=== PATIENT | male | born 1965 | race Caucasian/White ===

== ENCOUNTER 2017-10-10 11:25 | Day surgery (SDC) | payer BC ==
[~2017-10-10 11:25] MED LIST: Lactated Ringers 1,000 ML IV SCH; Lidocaine 2% 5 ML SDV ONE; Propofol 200 MG/20 ML SDV ONE; Sodium Chloride 0.9% 10 ML Syringe FLUSH PRN; Sodium Chloride 0.9% 2.5 ML Syringe FLUSH PRN; fentaNYL 100 MCG/2 ML SDV ONE
--- NOTE | 2017-10-10 12:01 | PCM.PREANE ---
Preanesthetic Assessment - Anesthesia/Transfusion/Family Hx Anesthesia History: Prior Anesthesia Without Reaction Family History of Anesthesia Reaction: No Transfusion History: No Prior Transfusion(s) Intubation History: Unknown - Review of Systems General: No Symptoms Pulmonary: No Symptoms Cardiovascular: No Symptoms Gastrointestinal: Diarrhea Neurological: No Symptoms Other: Reports: None - Physical Assessment NPO Status Date: 10/10/17 NPO Status Time: 08:00 O2 Sat by Pulse Oximetry: 95 Respiratory Rate: 16 Vital Signs: Last Vital Signs Temp 36.5 C 10/10/17 11:38 Pulse 54 L 10/10/17 11:38 Resp 16 10/10/17 11:38 BP 139/80 10/10/17 11:38 Pulse Ox 95 10/10/17 11:38 Height: 1.85 m Weight: 115.666 kg ASA Class: 2 Mental Status: Alert & Oriented x3 Airway Class: Mallampati = 2 Dentition: Reports: Bridge (fixed bridbe upper front) Thyro-Mental Finger Breadths: 3 Mouth Opening Finger Breadths: 2 ROM/Head Extension: Full Lungs: Clear to Auscultation, Normal Respiratory Effort Cardiovascular: Regular Rate, Regular Rhythm - Allergies Allergies/Adverse Reactions: Allergies Allergy/AdvReac Type Severity Reaction Status Date / Time No Known Allergies Allergy Verified 10/08/17 12:04 - Blood Blood Available: No - Anesthesia Plan Pre-Op Medication Ordered: None - Acknowledgements Anesthesia Type Planned: MAC Pt an Appropriate Candidate for the Planned Anesthesia: Yes Alternatives and Risks of Anesthesia Discussed w Pt/Guardian: Yes Pt/Guardian Understands and Agrees with Anesthesia Plan: Yes PreAnesthesia Questionnaire Other HEENT History: wears glasses Respiratory History: Reports: Sleep Apnea Other Respiratory History: uses CPAP Gastrointestinal History: Reports: Chronic Diarrhea Musculoskeletal History: Reports: Fracture Other Musculoskeletal History: hx of fx fingers and toes, left shoulder recurrent dislocations Endocrine/Metabolic History: Reports: Diabetes, Type II, Obesity/BMI 30+ - Past Surgical History Head Surgeries/Procedures: Reports: None HEENT Surgical History: Reports: Oral Surgery Other HEENT Surgeries/Procedures: has upper front dental implants Musculoskeletal Surgical History: Reports: Shoulder Surgery Other Musculoskeletal Surgeries/Procedures:: hx of right RTCR and TX of Acromioclavicular Dislocation - SUBSTANCE USE Smoking Status *Q: Never Smoker Recreational Drug Use History: No - HOME MEDS Home Medications: Home Meds Ascorbate Calcium [Vitamin C] 500 mg PO ASDIRECTED PRN 10/08/17 [History] Zolpidem Tartrate 10 mg PO BEDTIME PRN 10/08/17 [History] metFORMIN HCl [Metformin HCl ER] 1,000 mg PO QPM 10/08/17 [History] - CURRENT (IN HOUSE) MEDS Current Meds: Current Medications Lactated Ringer's (Ringers, Lactated) 1,000 mls @ 125 mls/hr IV ASDIRECTED BARBIE Last Admin: 10/10/17 11:42 Dose: 125 mls/hr Sodium Chloride (Saline Flush) 10 ml FLUSH ASDIRECTED PRN PRN Reason: Keep Vein Open Sodium Chloride (Saline Flush) 2.5 ml FLUSH ASDIRECTED PRN PRN Reason: Keep Vein Open Discontinued Medications Fentanyl (Sublimaze) Confirm Administered Dose 100 mcg .ROUTE .STK-MED ONE Stop: 10/10/17 10:00 Lidocaine (Xylocaine-Mpf 2%) Confirm Administered Dose 5 ml .ROUTE .STK-MED ONE Stop: 10/10/17 10:00 Propofol (Diprivan 20 Ml) Confirm Administered Dose 400 mg .ROUTE .STK-MED ONE Stop: 10/10/17 10:00
[2017-10-10] MEDS ORDERED: Midazolam 1 MG/ML 2 ML SDV ONE (12:19)
[2017-10-10] MEDS ORDERED: Propofol 200 MG/20 ML SDV ONE (12:21)
--- NOTE | 2017-10-10 13:00 | PCM.OPNOTE ---
- General Post-Op/Procedure Note Date of Surgery/Procedure: 10/10/17 Operative Procedure(s): Diagnostic EGD and colonoscopy Findings: Hyperplastic polyps in body of stomach, otherwise normal EGD. Diverticulosis in sigmoid colon. Pre Op Diagnosis: Change in bowel habits, GERD Post-Op Diagnosis: Hyperplastic polyps in stomach, diverticulosis Anesthesia Technique: [facility] [place] Primary Surgeon: Angely Donovan Condition: Good
--- NOTE | 2017-10-10 13:20 | PCM.POSTAN ---
POST ANESTHESIA ASSESSMENT - MENTAL STATUS Mental Status: Alert - RESPIRATORY Respiratory Status: Respiratory Rate WNL, Airway Patent, O2 Saturation Stable - CARDIOVASCULAR CV Status: Pulse Rate WNL, Blood Pressure Stable - GASTROINTESTINAL GI Status: No Symptoms - PAIN Pain Score: 0 - POST OP HYDRATION Hydration Status: Adequate & Stable - OBSERVATIONS Free Text/Narrative:: no anesthesia problems
--- NOTE | 2017-10-10 20:29 | OR ---
SURGEON: EJ DE LEON MD DATE OF PROCEDURE: 10/10/2017 PREOPERATIVE DIAGNOSES: Left upper quadrant pain, gastroesophageal reflux disease, change in bowel habits. POSTOPERATIVE DIAGNOSES: 1. Hyperplastic polyps of the stomach. 2. Diverticulosis. PROCEDURE PERFORMED: Diagnostic EGD and colonoscopy. ANESTHESIA: MAC. INSTRUMENT USED: Olympus colonoscope, Olympus endoscope. EXTENT OF EXAM: To the second portion of duodenum, to the cecum. PREPARATION: Good. LIMITATIONS: None. INDICATION FOR EXAMINATION: The patient is a 52-year-old male, who presents with left upper quadrant pain as well as a history of reflux and a change in his bowel habits. The patient has been having diarrhea. The decision was made to perform a diagnostic EGD and colonoscopy. The patient and I discussed the procedure, expected perioperative course, and risks including bleeding, infection, and perforation. The patient verbalized understanding and wishes to proceed. PROCEDURE IN DETAIL: The patient was brought into the endoscopy suite and placed in a beach chair position. A time-out was completed verifying the patient's name, age, date of , allergies, and procedure to be performed. A bite block was placed in the patient's mouth and monitored anesthesia care was induced. Continuous oxygen was provided via nasal cannula throughout the procedure. After adequate sedation was achieved, a well lubricated endoscope was placed in the patient's mouth and advanced under direct visualization to the level of the second portion of the duodenum. This appeared normal and a photograph was taken. The scope was then slowly withdrawn examining the color, texture, anatomy, and integrity of the upper GI mucosa. The duodenal bulb appeared normal. The scope was brought into the stomach and a photograph was taken of the pylorus and GE junction, which appeared normal. Biopsies were taken of the gastric body, antrum, and fundus. The patient was found to have several hyperplastic polyps all under 0.5 cm in size along the body of his stomach. The largest of these was biopsied and sent to pathology. The scope was then brought into the distal esophagus. This appeared normal and a photograph was taken. The remainder of the esophageal mucosa appeared normal. The scope was then removed from the patient and this procedure was terminated. The patient was turned onto his left side and a digital rectal exam performed. This exam was within normal limits. A well lubricated colonoscope was inserted in the rectum and advanced under direct visualization to the level of cecum. The cecum was identified by both visual and anatomic landmarks. A photograph was taken of the cecal cap as well as the scope retroflexed within the cecum. The scope was then straightened out and removed and fully withdrawn while examining the color, texture, anatomy, and integrity of the mucosa from the cecum to the anal canal. The patient was found to have diverticulosis within the sigmoid colon. The scope was then brought into the rectum and retroflexed to allow visualization of the anal canal opening. This appeared normal and a photograph was taken. The scope was then straightened out and removed from the patient. The cecum to anus time was 7 minutes. The patient tolerated the procedure well and was transferred to the PACU in stable condition. ENDOSCOPIC DIAGNOSES: 1. Hyperplastic polyps of the stomach body. 2. Diverticulosis. RECOMMENDATIONS: Follow up in clinic in 2 weeks. We will have the patient start pantoprazole to see if this helps with his intermittent left upper quadrant pain. He can continue to take Metamucil as he is finding this is slowing down the frequency of his bowel movements improving the consistency of his BMs. The patient can take Imodium as needed for greater than 4 bowel movements per day. ELY PERKINS /[id number] RICHARD
== END 2017-10-10 13:25 | disposition home or self-care (01) ==
LOC: MW.SDS 11:25
PROVIDERS: ATTEND Surgery
DX: K29.50 Unspecified chronic gastritis without bleeding (principal); K31.7 Polyp of stomach and duodenum; K57.30 Diverticulosis of large intestine without perforation or abscess without bleeding; G47.33 Obstructive sleep apnea (adult) (pediatric); K52.9 Noninfective gastroenteritis and colitis, unspecified; F51.04 Psychophysiologic insomnia; E11.9 Type 2 diabetes mellitus without complications; M47.26 Other spondylosis with radiculopathy, lumbar region; M51.36 Other intervertebral disc degeneration, lumbar region; E66.9 Obesity, unspecified; Z68.33 Body mass index [BMI] 33.0-33.9, adult; Z79.899 Other long term (current) drug therapy; Z79.84 Long term (current) use of oral hypoglycemic drugs; Z99.89 Dependence on other enabling machines and devices; Z98.890 Other specified postprocedural states
CPT/HCPCS: 43239; 45378; J2250; J3010; J7120; 88305; 88312; J2704

== ENCOUNTER 2020-05-11 10:05 | Day surgery (SDC) | payer OTHER ==
[2020-05-11] MEDS ORDERED: Ondansetron 4 MG/2 ML SDV ONE ×2 (10:16→13:27)
[2020-05-11] MEDS ORDERED: fentaNYL 50 MCG/ML SDV ONE (10:19)
[2020-05-11] MEDS ORDERED: Sodium Chloride 0.9% 1,000 ML IV STA (10:20)
[2020-05-11] MEDS ORDERED: fentaNYL 50 MCG/ML SDV IVPUSH ONE ×2 (10:20→10:37)
[2020-05-11] MEDS ORDERED: Ondansetron 4 MG/2 ML SDV IVPUSH ONE (10:20)
[2020-05-11 10:48] LABS: BLOOD UREA NITROGEN,BUN 17 mg/dL (7.0-18.0); CARBON DIOXIDE,CO2 24.2 mmol/L (21.0-32.0); CHLORIDE,CL 104 mmol/L (98-107); GLUCOSE RANDOM 138 mg/dL (74-106); POTASSIUM,K 3.9 mmol/L (3.5-5.1); SODIUM,NA 140 mmol/L (136-148)
[2020-05-11] MEDS ORDERED: Ketorolac 30 MG/ML SDV IVPUSH ONE (11:28)
--- NOTE | 2020-05-11 11:38 | CT ---
CT abdomen and pelvis Technique: Multiple axial sections were obtained from above the dome of the diaphragm inferiorly through the pubic symphysis. Intravenous and oral contrast not utilized. Study has been performed as a ureteral stone protocol. Findings: Left ureter is dilated down to the bladder. This finding is caused by an obstructing stone located within the distal UVJ measuring 6.8 mm. No other ureteral calculi are seen. Right kidney shows a nonobstructing stone measuring approximately 6 mm. Visualized lung bases show nothing acute. Noncontrast appearance of the liver shows no focal abnormality. Gallbladder contains no calcified gallstones spleen size is normal. Fatty adrenal abnormality is identified on the left side. This adrenal nodule measures 2.7 cm in size and most likely represents a benign adenoma. Right adrenal gland is unremarkable. Pancreas appears within normal limits. Aorta shows no aneurysm. No retroperitoneal adenopathy or mesenteric abnormalities are seen. Appendix is seen which appears normal. No pelvic mass or adenopathy is seen. Diverticuli are seen within the colon most prominent in the sigmoid region with no findings of diverticulitis. No free fluid or inflammatory change is seen. Bone window settings were reviewed which appear within normal limits for the patient's age. Impression: 1. Dilated left ureter caused by a 6.8 mm obstructing stone located within the distal UVJ. 2. Nonobstructing calculus within the right kidney. 3. Other nonacute findings as noted above. Diagnostic code #3 This report was dictated in MDT
--- NOTE | 2020-05-11 12:53 | EDM.PDOC ---
ED HPI GENERAL MEDICAL PROBLEM - General Chief Complaint: Abdominal Pain Stated Complaint: ABDOMINAL PAIN Time Seen by Provider: 05/11/20 10:21 Source of Information: Reports: Patient History Limitations: Reports: No Limitations - History of Present Illness INITIAL COMMENTS - FREE TEXT/NARRATIVE: Reports 4-hour history of left lower quadrant pain and left flank pain. He did have a hard dark brown BM this morning. No history of diverticulosis and he has had a colonoscopy. He had a CT scan of the abdomen pelvis about a month or so ago but it was negative with only an incidental finding of a kidney cyst. He has never had this pain before. No personal or family history of kidney stones. No urinary urgency burning or frequency, no fever. The pain has been excruciating and is accompanied by nausea. LLQ, L Flank Pain Score (Numeric/FACES): 8 - Related Data Allergies Allergy/AdvReac Type Severity Reaction Status Date / Time No Known Allergies Allergy Verified 05/11/20 10:13 Home Meds: Home Meds Hydrocodone/Acetaminophen [Hydrocodone-Acetamin 10-325 mg] 1 tab PO Q6HR PRN #10 tablet 05/11/20 [Rx] Past Medical History Other HEENT History: wears glasses Respiratory History: Reports: Sleep Apnea Other Respiratory History: uses CPAP Gastrointestinal History: Reports: Chronic Diarrhea Musculoskeletal History: Reports: Fracture Other Musculoskeletal History: hx of fx fingers and toes, left shoulder recurrent dislocations Endocrine/Metabolic History: Reports: Diabetes, Type II, Obesity/BMI 30+ Other Endocrine/Metabolic History: pre-diabetic - Past Surgical History Head Surgeries/Procedures: Reports: None HEENT Surgical History: Reports: Oral Surgery Other HEENT Surgeries/Procedures: has upper front dental implants Musculoskeletal Surgical History: Reports: Shoulder Surgery Other Musculoskeletal Surgeries/Procedures:: hx of right RTCR and TX of Acromioclavicular Dislocation Social & Family History - Family History Family Medical History: Noncontributory - Tobacco Use Smoking Status *Q: Never Smoker - Recreational Drug Use Recreational Drug Use: No ED ROS GENERAL - Review of Systems Review Of Systems: Comprehensive ROS is negative, except as noted in HPI. ED EXAM, GI/ABD - Physical Exam Exam: See Below Exam Limited By: No Limitations General Appearance: Alert, Moderate Distress (due to pain) Ears: Normal External Exam Nose: Normal Inspection Throat/Mouth: Normal Inspection Head: Atraumatic, Normocephalic Neck: Normal Inspection Respiratory/Chest: No Respiratory Distress, Lungs Clear, Normal Breath Sounds Cardiovascular: Normal Peripheral Pulses, Regular Rate, Rhythm, No Murmur GI/Abdominal Exam: Soft, Non-Tender, No Distention Extremities: Normal Inspection Neurological: Alert, Oriented Psychiatric: Anxious Skin Exam: Warm, Dry, Intact, Normal Color, No Rash Lymphatic: No Adenopathy Course - Vital Signs Last Recorded V/S: Last Vital Signs Temp 35.8 C L 05/11/20 10:37 Pulse 60 05/11/20 10:37 Resp 18 05/11/20 10:37 BP 135/86 05/11/20 10:37 Pulse Ox 100 05/11/20 10:37 - Orders/Labs/Meds Orders: Active Orders 24 hr Category Date Time Status Patient Status [ADT] Routine ADT 05/11/20 12:39 Ordered EKG 12 Lead [EKG Documentation Completion] [RC] STAT Care 05/11/20 11:09 Ordered UA W/MICROSCOPIC [URIN] Stat Lab 05/11/20 10:31 Ordered Labs: Laboratory Tests 05/11/20 05/11/20 05/11/20 Range/Units 10:15 10:15 10:15 WBC 9.00 (4.0-11.0) K/uL RBC 5.24 (4.50-5.90) M/uL Hgb 15.8 (13.0-17.0) g/dL Hct 47.4 (38.0-50.0) % MCV 90.5 (80.0-98.0) fL MCH 30.2 (27.0-32.0) pg MCHC 33.3 (31.0-37.0) g/dL RDW Std Deviation 42.8 (28.0-62.0) fl RDW Coeff of Anshu 13 (11.0-15.0) % Plt Count 260 (150-400) K/uL MPV 10.00 (7.40-12.00) fL Neut % (Auto) 64.1 (48.0-80.0) % Lymph % (Auto) 24.3 (16.0-40.0) % [place] % (Auto) 8.1 (0.0-15.0) % Eos % (Auto) 3.3 (0.0-7.0) % Baso % (Auto) 0.2 (0.0-1.5) % Neut # (Auto) 5.8 H (1.4-5.7) K/uL Lymph # (Auto) 2.2 (0.6-2.4) K/uL [place] # (Auto) 0.7 (0.0-0.8) K/uL Eos # (Auto) 0.3 (0.0-0.7) K/uL Baso # (Auto) 0.0 (0.0-0.1) K/uL Nucleated RBC % 0.0 /100WBC Nucleated RBCs # 0 K/uL Sodium 140 (136-148) mmol/L Potassium 3.9 (3.5-5.1) mmol/L Chloride 104 (98-107) mmol/L Carbon Dioxide 24.2 (21.0-32.0) mmol/L BUN 17 (7.0-18.0) mg/dL Creatinine 1.2 (0.8-1.3) mg/dL Est Cr Clr Drug Dosing 79.53 mL/min Estimated GFR (MDRD) > 60.0 ml/min Glucose 138 H (74-106) mg/dL Calcium 8.9 (8.5-10.1) mg/dL Total Bilirubin 0.6 (0.2-1.0) mg/dL AST 19 (15-37) IU/L ALT 26 (14-63) IU/L Alkaline Phosphatase 64 (46-116) U/L Troponin I <0.050 (0.000-0.056) ng/mL Total Protein 7.6 (6.4-8.2) g/dL Albumin 4.1 (3.4-5.0) g/dL Globulin 3.5 (2.6-4.0) g/dL Albumin/Globulin Ratio 1.2 (0.9-1.6) SARS-CoV-2 RNA (RT-PCR) (NEGATIVE) 05/11/20 Range/Units 12:22 WBC (4.0-11.0) K/uL RBC (4.50-5.90) M/uL Hgb (13.0-17.0) g/dL Hct (38.0-50.0) % MCV (80.0-98.0) fL MCH (27.0-32.0) pg MCHC (31.0-37.0) g/dL RDW Std Deviation (28.0-62.0) fl RDW Coeff of Anshu (11.0-15.0) % Plt Count (150-400) K/uL MPV (7.40-12.00) fL Neut % (Auto) (48.0-80.0) % Lymph % (Auto) (16.0-40.0) % [place] % (Auto) (0.0-15.0) % Eos % (Auto) (0.0-7.0) % Baso % (Auto) (0.0-1.5) % Neut # (Auto) (1.4-5.7) K/uL Lymph # (Auto) (0.6-2.4) K/uL [place] # (Auto) (0.0-0.8) K/uL Eos # (Auto) (0.0-0.7) K/uL Baso # (Auto) (0.0-0.1) K/uL Nucleated RBC % /100WBC Nucleated RBCs # K/uL Sodium (136-148) mmol/L Potassium (3.5-5.1) mmol/L Chloride (98-107) mmol/L Carbon Dioxide (21.0-32.0) mmol/L BUN (7.0-18.0) mg/dL Creatinine (0.8-1.3) mg/dL Est Cr Clr Drug Dosing mL/min Estimated GFR (MDRD) ml/min Glucose (74-106) mg/dL Calcium (8.5-10.1) mg/dL Total Bilirubin (0.2-1.0) mg/dL AST (15-37) IU/L ALT (14-63) IU/L Alkaline Phosphatase (46-116) U/L Troponin I (0.000-0.056) ng/mL Total Protein (6.4-8.2) g/dL Albumin (3.4-5.0) g/dL Globulin (2.6-4.0) g/dL Albumin/Globulin Ratio (0.9-1.6) SARS-CoV-2 RNA (RT-PCR) NEGATIVE (NEGATIVE) Meds: Medications Discontinued Medications Generic Name Dose Route Start Last Admin Trade Name Freq PRN Reason Stop Dose Admin Fentanyl 50 mcg 05/11/20 10:20 05/11/20 10:21 Fentanyl IVPUSH 05/11/20 10:21 50 mcg ONETIME ONE Administration Fentanyl Confirm 05/11/20 10:19 05/11/20 10:22 Fentanyl Administered 05/11/20 10:20 Not Given Dose 50 mcg .ROUTE .STK-MED ONE Fentanyl 50 mcg 05/11/20 10:37 05/11/20 10:47 Fentanyl IVPUSH 05/11/20 10:38 50 mcg ONETIME ONE Administration Sodium Chloride 1,000 mls @ 999 mls/hr 05/11/20 10:20 05/11/20 10:21 Normal Saline IV 05/11/20 11:20 999 mls/hr STAT STA Administration Ketorolac Tromethamine 30 mg 05/11/20 11:28 05/11/20 11:42 Toradol IVPUSH 05/11/20 11:29 30 mg ONETIME ONE Administration Ondansetron HCl Confirm 05/11/20 10:16 05/11/20 10:21 Zofran Administered 05/11/20 10:17 Not Given Dose 4 mg .ROUTE .STK-MED ONE Ondansetron HCl 4 mg 05/11/20 10:20 05/11/20 10:21 Zofran IVPUSH 05/11/20 10:21 4 mg ONETIME ONE Administration - Re-Assessments/Exams Free Text/Narrative Re-Assessment/Exam: 05/11/20 13:00 Pain improved with Toradol, now resting with 1/10 pain. Free Text/Narrative Re-Assessment/Exam: 05/11/20 13:01 Dr. Erick MD urology consulted. Discussion regarding clinical course, history, imaging and lab findings. He will see patient and get him admitted to same-day surgery. COVID test ordered. NPO status 1/2 cup coffee at 7am. Departure - Departure Time of Disposition: 13:02 Disposition: Refer to Observation Condition: Good Clinical Impression: Ureteral stone with hydronephrosis - Discharge Information Prescriptions: Hydrocodone/Acetaminophen [Hydrocodone-Acetamin 10-325 mg] 1 tab PO Q6HR PRN #10 tablet PRN Reason: Pain Referrals: Uli Moncada MD [Primary Care Provider] - Sepsis Event Note (ED) - Evaluation Sepsis Screening Result: No Definite Risk - Focused Exam Vital Signs: Vital Signs Temp Pulse Resp BP Pulse Ox 05/11/20 10:37 35.8 C L 60 18 135/86 100 05/11/20 10:10 35.6 C L 54 L 20 128/60 100 - My Orders Last 24 Hours: My Active Orders 05/11/20 10:31 UA W/MICROSCOPIC [URIN] Stat 05/11/20 11:09 EKG 12 Lead [EKG Documentation Completion] [RC] STAT 05/11/20 12:39 Patient Status [ADT] Routine - Assessment/Plan Last 24 Hours: My Active Orders 05/11/20 10:31 UA W/MICROSCOPIC [URIN] Stat 05/11/20 11:09 EKG 12 Lead [EKG Documentation Completion] [RC] STAT 05/11/20 12:39 Patient Status [ADT] Routine
[2020-05-11] MEDS ORDERED: Midazolam 1 MG/ML 2 ML SDV ONE (13:26)
[2020-05-11] MEDS ORDERED: Propofol 200 MG/20 ML SDV ONE (13:26)
[2020-05-11] MEDS ORDERED: fentaNYL 250 MCG/5 ML SDV ONE (13:26)
[2020-05-11] MEDS ORDERED: Dexamethasone 4 MG/ML 5 ML MDV ONE (13:27)
--- NOTE | 2020-05-11 13:52 | PCM.PREANE ---
Preanesthetic Assessment - Anesthesia/Transfusion/Family Hx Anesthesia History: Prior Anesthesia Without Reaction (shoulder, oral) Family History of Anesthesia Reaction: No Transfusion History: No Prior Transfusion(s) Intubation History: Unknown - Review of Systems General: No Symptoms Pulmonary: No Symptoms Cardiovascular: No Symptoms Gastrointestinal: Abdominal Pain Neurological: No Symptoms Other: Reports: None - Physical Assessment NPO Status Date: 05/11/20 NPO Status Time: 07:30 (CL only) Vital Signs: Last Vital Signs Temp 96.5 F L 05/11/20 10:37 Pulse 65 05/11/20 13:03 Resp 17 05/11/20 13:03 BP 104/57 L 05/11/20 13:03 Pulse Ox 98 05/11/20 13:03 Height: 6 ft 1 in Weight: 113.398 kg ASA Class: 2 Mental Status: Alert & Oriented x3 Airway Class: Mallampati = 2 Dentition: Reports: Implants (central maxillary) ROM/Head Extension: Full Lungs: Clear to Auscultation, Normal Respiratory Effort Cardiovascular: Regular Rate, Regular Rhythm - Lab Values: Laboratory Last Values WBC 9.00 K/uL (4.0-11.0) 05/11/20 10:15 RBC 5.24 M/uL (4.50-5.90) 05/11/20 10:15 Hgb 15.8 g/dL (13.0-17.0) 05/11/20 10:15 Hct 47.4 % (38.0-50.0) 05/11/20 10:15 MCV 90.5 fL (80.0-98.0) 05/11/20 10:15 MCH 30.2 pg (27.0-32.0) 05/11/20 10:15 MCHC 33.3 g/dL (31.0-37.0) 05/11/20 10:15 RDW Std Deviation 42.8 fl (28.0-62.0) 05/11/20 10:15 RDW Coeff of Anshu 13 % (11.0-15.0) 05/11/20 10:15 Plt Count 260 K/uL (150-400) 05/11/20 10:15 MPV 10.00 fL (7.40-12.00) 05/11/20 10:15 Neut % (Auto) 64.1 % (48.0-80.0) 05/11/20 10:15 Lymph % (Auto) 24.3 % (16.0-40.0) 05/11/20 10:15 Andrew % (Auto) 8.1 % (0.0-15.0) 05/11/20 10:15 Eos % (Auto) 3.3 % (0.0-7.0) 05/11/20 10:15 Baso % (Auto) 0.2 % (0.0-1.5) 05/11/20 10:15 Neut # (Auto) 5.8 K/uL (1.4-5.7) H 05/11/20 10:15 Lymph # (Auto) 2.2 K/uL (0.6-2.4) 05/11/20 10:15 Andrew # (Auto) 0.7 K/uL (0.0-0.8) 05/11/20 10:15 Eos # (Auto) 0.3 K/uL (0.0-0.7) 05/11/20 10:15 Baso # (Auto) 0.0 K/uL (0.0-0.1) 05/11/20 10:15 Nucleated RBC % 0.0 /100WBC 05/11/20 10:15 Nucleated RBCs # 0 K/uL 05/11/20 10:15 Sodium 140 mmol/L (136-148) 05/11/20 10:15 Potassium 3.9 mmol/L (3.5-5.1) 05/11/20 10:15 Chloride 104 mmol/L (98-107) 05/11/20 10:15 Carbon Dioxide 24.2 mmol/L (21.0-32.0) 05/11/20 10:15 BUN 17 mg/dL (7.0-18.0) 05/11/20 10:15 Creatinine 1.2 mg/dL (0.8-1.3) 05/11/20 10:15 Est Cr Clr Drug Dosing 79.53 mL/min 05/11/20 10:15 Estimated GFR (MDRD) > 60.0 ml/min 05/11/20 10:15 Glucose 138 mg/dL (74-106) H 05/11/20 10:15 Calcium 8.9 mg/dL (8.5-10.1) 05/11/20 10:15 Total Bilirubin 0.6 mg/dL (0.2-1.0) 05/11/20 10:15 AST 19 IU/L (15-37) 05/11/20 10:15 ALT 26 IU/L (14-63) 05/11/20 10:15 Alkaline Phosphatase 64 U/L (46-116) 05/11/20 10:15 Troponin I <0.050 ng/mL (0.000-0.056) 05/11/20 10:15 Total Protein 7.6 g/dL (6.4-8.2) 05/11/20 10:15 Albumin 4.1 g/dL (3.4-5.0) 05/11/20 10:15 Globulin 3.5 g/dL (2.6-4.0) 05/11/20 10:15 Albumin/Globulin Ratio 1.2 (0.9-1.6) 05/11/20 10:15 SARS-CoV-2 RNA (RT-PCR) NEGATIVE (NEGATIVE) 05/11/20 12:22 - Allergies Allergies/Adverse Reactions: Allergies Allergy/AdvReac Type Severity Reaction Status Date / Time No Known Allergies Allergy Verified 05/11/20 10:13 - Blood Blood Available: No - Anesthesia Plan Pre-Op Medication Ordered: Other (zofran, fentanyl and toradol in ED today) - Acknowledgements Anesthesia Type Planned: General Anesthesia Pt an Appropriate Candidate for the Planned Anesthesia: Yes Alternatives and Risks of Anesthesia Discussed w Pt/Guardian: Yes Pt/Guardian Understands and Agrees with Anesthesia Plan: Yes Additional Comments: PMH: JOSHUA-used CPAP, pre-DM- on no meds, chronic diarrhea- recent neg colonoscopy, NKDA, 6.8 mm stone at UV junction, hb=15, vwa=880, cr=1.2, eGFR>60 PLAN: ga/LMA PreAnesthesia Questionnaire Other HEENT History: wears glasses Respiratory History: Reports: Sleep Apnea Other Respiratory History: uses CPAP Gastrointestinal History: Reports: Chronic Diarrhea Musculoskeletal History: Reports: Fracture Other Musculoskeletal History: hx of fx fingers and toes, left shoulder recurrent dislocations Endocrine/Metabolic History: Reports: Diabetes, Type II, Obesity/BMI 30+ Other Endocrine/Metabolic History: pre-diabetic - Past Surgical History Head Surgeries/Procedures: Reports: None HEENT Surgical History: Reports: Oral Surgery Other HEENT Surgeries/Procedures: has upper front dental implants Musculoskeletal Surgical History: Reports: Shoulder Surgery Other Musculoskeletal Surgeries/Procedures:: hx of right RTCR and TX of Acromioclavicular Dislocation - SUBSTANCE USE Smoking Status *Q: Never Smoker Recreational Drug Use History: No - HOME MEDS Home Medications: Home Meds Hydrocodone/Acetaminophen [Hydrocodone-Acetamin 10-325 mg] 1 tab PO Q6HR PRN #10 tablet 05/11/20 [Rx] - CURRENT (IN HOUSE) MEDS Current Meds: Current Medications Discontinued Medications Dexamethasone (Dexamethasone) Confirm Administered Dose 20 mg .ROUTE .STK-MED ONE Stop: 05/11/20 13:28 Fentanyl (Fentanyl) 50 mcg IVPUSH ONETIME ONE Stop: 05/11/20 10:21 Last Admin: 05/11/20 10:21 Dose: 50 mcg Documented by: Fentanyl (Fentanyl) Confirm Administered Dose 50 mcg .ROUTE .STK-MED ONE Stop: 05/11/20 10:20 Last Admin: 05/11/20 10:22 Dose: Not Given Documented by: Fentanyl (Fentanyl) 50 mcg IVPUSH ONETIME ONE Stop: 05/11/20 10:38 Last Admin: 05/11/20 10:47 Dose: 50 mcg Documented by: Fentanyl (Sublimaze) Confirm Administered Dose 250 mcg .ROUTE .STK-MED ONE Stop: 05/11/20 13:27 Sodium Chloride (Normal Saline) 1,000 mls @ 999 mls/hr IV STAT STA Stop: 05/11/20 11:20 Last Admin: 05/11/20 10:21 Dose: 999 mls/hr Documented by: Ketorolac Tromethamine (Toradol) 30 mg IVPUSH ONETIME ONE Stop: 05/11/20 11:29 Last Admin: 05/11/20 11:42 Dose: 30 mg Documented by: Lidocaine HCl (Xylocaine-Mpf 1%) Confirm Administered Dose 5 ml .ROUTE .STK-MED ONE Stop: 05/11/20 13:28 Midazolam HCl (Versed 1 Mg/Ml) Confirm Administered Dose 2 mg .ROUTE .STK-MED ONE Stop: 05/11/20 13:27 Ondansetron HCl (Zofran) Confirm Administered Dose 4 mg .ROUTE .STK-MED ONE Stop: 05/11/20 10:17 Last Admin: 05/11/20 10:21 Dose: Not Given Documented by: Ondansetron HCl (Zofran) 4 mg IVPUSH ONETIME ONE Stop: 05/11/20 10:21 Last Admin: 05/11/20 10:21 Dose: 4 mg Documented by: Ondansetron HCl (Zofran) Confirm Administered Dose 4 mg .ROUTE .STK-MED ONE Stop: 05/11/20 13:28 Propofol (Diprivan 20 Ml) Confirm Administered Dose 200 mg .ROUTE .STK-MED ONE Stop: 05/11/20 13:27
[2020-05-11] MEDS ORDERED: Succinylcholine/Sod PF 100 MG/5 ML SYRINGE IV ONE (13:57)
[2020-05-11] MEDS ORDERED: Sodium Chloride 0.9% 20 ML ONE (14:08)
[2020-05-11] MEDS ORDERED: ceFAZolin 1 GM Vial ONE (14:08)
[2020-05-11] MEDS ORDERED: fentaNYL 100 MCG/2 ML SDV IVPUSH PRN (14:13)
[2020-05-11] MEDS ORDERED: Iopamidol 200-M 10 ML vial ITHECAL ONE (14:43)
--- NOTE | 2020-05-11 15:42 | PCM.POSTAN ---
POST ANESTHESIA ASSESSMENT - MENTAL STATUS Mental Status: Alert, Oriented - VITAL SIGNS Vital Signs: Last Vital Signs Temp 97.2 F 05/11/20 14:34 Pulse 60 05/11/20 15:02 Resp 14 05/11/20 15:02 BP 105/49 L 05/11/20 15:02 Pulse Ox 96 05/11/20 15:02 - RESPIRATORY Respiratory Status: Respiratory Rate WNL, Airway Patent, O2 Saturation Stable - CARDIOVASCULAR CV Status: Pulse Rate WNL, Blood Pressure Stable - GASTROINTESTINAL GI Status: No Symptoms - POST OP HYDRATION Hydration Status: Adequate & Stable
--- NOTE | 2020-05-11 15:43 | PCM48HPAN ---
Post Anesthesia Note - EVALUATION WITHIN 48HRS OF ANESTHETIC Vital Signs in Normal Range: Yes Patient Participated in Evaluation: Yes Respiratory Function Stable: Yes Airway Patent: Yes Cardiovascular Function Stable: Yes Hydration Status Stable: Yes Pain Control Satisfactory: Yes Nausea and Vomiting Control Satisfactory: Yes Mental Status Recovered: Yes Vital Signs: Last Vital Signs Temp 97.2 F 05/11/20 14:34 Pulse 60 05/11/20 15:02 Resp 14 05/11/20 15:02 BP 105/49 L 05/11/20 15:02 Pulse Ox 96 05/11/20 15:02
--- NOTE | 2020-05-11 18:45 | OR ---
SURGEON: Rina Suarez M.D. DATE OF PROCEDURE: 05/11/2020 PREOPERATIVE DIAGNOSIS: A 6.7 mm left lower ureteral stone. POSTOPERATIVE DIAGNOSIS: A 6.7 mm left lower ureteral stone. OPERATION: Left ureteroscopy, stone removal. DESCRIPTION OF PROCEDURE: The patient was given general anesthesia. He was placed in dorsal lithotomy position, prepped and draped in sterile drapes. Cystourethroscopy was done that was normal. A guidewire was advanced in the left ureter alongside the stone. The lower ureter was then dilated using the UroMax II balloon dilator to approximately 15-[place]. The 12-[place] rigid ureteroscope was advanced in the left ureter. The stone was grasped and removed. The bladder was emptied, the guidewire was removed, and the patient was moved to recovery room in good condition. YANIRA / MADDIE /[id number]
== END 2020-05-11 15:35 | disposition home or self-care (01) ==
LOC: MW.ED 10:05 → MW.SDS 13:12
PROVIDERS: ATTEND Urology
DX: N13.2 Hydronephrosis with renal and ureteral calculous obstruction (principal); Z11.59 Encounter for screening for other viral diseases; G47.30 Sleep apnea, unspecified; E11.9 Type 2 diabetes mellitus without complications; E66.9 Obesity, unspecified; Z99.89 Dependence on other enabling machines and devices; Z68.33 Body mass index [BMI] 33.0-33.9, adult
CPT/HCPCS: 36415; 52352; 74176; 80053; 84484; 85025; 87635; 88300; 93005; 96361; 96374; 96375; 99285; C1769; J0330; J0690; J1100; J1885; J2001; J2250; J2405; J2704; J3010; J7030; Q9966; U0002